=== PATIENT | female | born 2000 | race Caucasian/White ===

== ENCOUNTER 2019-07-19 11:48 | Outpatient (CLI) | payer MEDICAID, SELFPAY ==
[2019-07-19 12:08] VITALS: BMI 29.2
[2019-07-19 12:20] VITALS: BP 123/74; PULSE 68; RESP 20; TEMP 36.8; O2SAT 96; BMI 29.2
[2019-07-19 12:39] LABS: Fetal Membrane Rupture (Rapid) Negative (Negative)
[2019-07-19 13:13] LABS: Microscopic, Urine URINE MICROSCOPIC (MICROSCOPIC)
[2019-07-19 13:14] LABS: Appearance,Urine CLEAR (Clear); Bilirubin,Urine Negative (Negative); Blood, Urine Negative (Negative); Color,Urine YELLOW (Yellow); Glucose,Urine (UA) Negative (Negative); Ketones,Urine Negative (Negative); Leukocyte Esterase,Urine Negative (Negative); Nitrate,Urine Negative (Negative); PH,Urine 7.5 (5.0-8.5); Protein,Urine Negative (Negative); Specific Gravity, Urine 1.015 (1.005-1.030); Urobilinogen,Urine 0.2 EU/dl (0.2)
[2019-07-19 13:31] LABS: Barbiturates Screen,Urine Negative ng/ml (<200)
[2019-07-19 13:32] LABS: Benzodiazepines Screen,Urine Negative ng/ml (<200)
[2019-07-19 13:33] LABS: Amphetamine/Metha Screen,Urine Negative ng/ml (<1000); Bacteria,Urine Trace /lpf; Cannabinoid Screen,Urine Negative ng/ml (<50); Squamous Epithelial Cell,Urine Occasional #/hpf (0-5)
[2019-07-19 13:34] LABS: Cocaine Screen,Urine Negative ng/ml (<300); Methadone Screen,Urine Negative ng/ml (<300)
[2019-07-19 13:35] LABS: Opiate Screen,Urine Negative ng/ml (<300)
[2019-07-19 13:36] LABS: Phencyclidine Screen,Urine Negative ng/ml (<25)
== END 2019-07-19 13:41 | disposition home or self-care (01) ==
LOC: OBOUT 11:55 → OB 11:59
PROVIDERS: PCP Pediatrics; Visit Provider Obstetrics & Gynecology
DX: O60.03 Preterm labor without delivery, third trimester (principal); O36.8190 Decreased fetal movements, unspecified trimester, not applicable or unspecified; R10.2 Pelvic and perineal pain; Z3A.40 40 weeks gestation of pregnancy
CPT/HCPCS: 59025; 80305; 81001; 84112; G0463